=== PATIENT | female | born 1975 | race Caucasian/White ===

== ENCOUNTER 2024-08-21 06:16 | Emergency (ER) | payer BC ==
[2024-08-21] MEDS: fentaNYL 100 MCG/2 ML SDV IVPUSH ONE (06:40)
[2024-08-21] MEDS: Ondansetron 4 MG/2 ML SDV IVPUSH ONE (06:40)
[2024-08-21 06:42] LABS: BASOPHILS ABSOLUTE AUTO 0.04 K/uL (0.00-0.10); BASOPHILS PERCENT AUTO 0.4 % (0.1-1.3); EOSINOPHILS ABSOLUTE AUTO 0.12 K/uL (0.00-0.40); EOSINOPHILS PERCENT AUTO 1.3 % (0.0-5.4); HEMATOCRIT 35.8 % (34.3-46.0); HEMOGLOBIN 11.8 g/dL (11.2-15.5); IMMATURE GRAN PERCENT AUTO 0.1 % (0.0-0.7); LYMPHOCYTES ABSOLUTE AUTO 5.09 K/uL (0.8-3.3); MEAN CORPUSCULAR HEMOGLOBIN 30.8 pg (31.6-35.5); MEAN CORPUSCULAR VOLUME 93.5 fL (81.4-99.0); MONOCYTES PERCENT AUTO 7.8 % (3.3-12.6); NEUTROPHILS ABSOLUTE AUTO 2.97 K/uL (1.0-7.6); NEUTROPHILS PERCENT AUTO 33.4 % (40.0-78.1); PLATELET COUNT,PLT 334 K/uL (130-375); RED BLOOD CELL COUNT 3.83 M/uL (3.77-5.24); WHITE BLOOD CELL COUNT,WBC 8.9 K/uL (3.2-11.0)
[2024-08-21 06:43] LABS: IMMATURE GRAN ABSOLUTE AUTO 0.01 K/uL (0.00-0.23)
[2024-08-21] MEDS: Ketorolac 30 MG/ML SDV IVPUSH ONE (06:46)
[2024-08-21 06:54] LABS: A/G RATIO 1.1 (1.2-2.2); ALANINE AMINOTRANSFERASE,ALT 29 U/L (12-78); ALBUMIN 3.5 g/dL (3.4-5.0); ALKALINE PHOSPHATASE 74 U/L (46-116); ANION GAP 13.7 mmol/L (5.0-14.0); ASPARTATE AMNIOTRANSFERASE,AST 20 U/L (15-37); BILIRUBIN TOTAL 0.2 mg/dL (0.2-1.0); BLOOD UREA NITROGEN,BUN 10 mg/dL (7-18); CALCIUM 9.1 mg/dL (8.5-10.1); CARBON DIOXIDE,CO2 25 mmol/L (21-32); CHLORIDE,CL 102 mmol/L (100-108); CREATININE 1.1 mg/dL (0.6-1.0); EST CRCL DRUG DOSING (CG) 45.41 mL/min; ESTIMATED GFR 62 mL/min (>60); GLUCOSE RANDOM 140 mg/dL (74-106); POTASSIUM,K 3.9 mmol/L (3.6-5.2); PROTEIN TOTAL,TP 6.6 g/dL (6.4-8.2); SODIUM,NA 141 mmol/L (140-148)
[2024-08-21] MEDS: HYDROmorphone 0.5 MG/0.5 ML Syringe IVPUSH ONE (06:54)
[2024-08-21] MEDS: Sodium Chloride 0.9% 10 ML Syringe FLUSH PRN ×2 (07:00→07:03)
[2024-08-21] MEDS: Sodium Chloride 0.9% 1,000 ML IV STA (07:00)
[2024-08-21] MEDS: Iopamidol 612 MG/ML 100 ML Bottle IV PRN (07:12)
[2024-08-21] MEDS: Sodium Chloride 0.9% 80 ML IV SCH (07:12)
[2024-08-21] MEDS ORDERED: Naloxone 0.4 MG/ML SDV IVPUSH PRN (07:20)
[2024-08-21] MEDS: HYDROmorphone 1 MG/ML Syringe IVPUSH PRN (07:26)
[2024-08-21] MEDS: Prochlorperazine 10 MG/2 ML SDV IVPUSH ONE (07:26)
[2024-08-21] MEDS: Tamsulosin 0.4 MG Cap.ER PO ONE (08:06)
[2024-08-21] MEDS: Acetaminophen 1,000 MG in Premix Bag 1 BAG IV ONE (08:07)
[2024-08-21 08:17] LABS: APPEARANCE,URINE CLEAR (CLEAR); BILIRUBIN,URINE NEGATIVE (NEGATIVE); COLOR,URINE YELLOW (YELLOW); GLUCOSE,URINE NEGATIVE (NEGATIVE); KETONES,URINE TRACE mg/dL (NEGATIVE); LEUKOCYTE ESTERASE,URINE NEGATIVE (NEGATIVE); NITRITE,URINE NEGATIVE (NEGATIVE); OCCULT BLOOD,URINE TRACE-INTACT (NEGATIVE); PH,URINE 8.5 (5.0-8.0); PROTEIN,URINE NEGATIVE (NEGATIVE); UROBILINOGEN,URINE 0.2 EU/dL (0.2-1.0)
[2024-08-21 08:21] LABS: AMORPHOUS SEDIMENT,URINE NOT SEEN; BACTERIA,URINE FEW; EPITHELIAL CELLS,URINE FEW; MUCUS,URINE NOT SEEN; WBC,URINE 0-5 (0-5)
== END 2024-08-21 10:20 | disposition home or self-care (01) ==
LOC: JP.ED 06:16
DX: N13.2 Hydronephrosis with renal and ureteral calculous obstruction (principal); Z79.899 Other long term (current) drug therapy; Z90.710 Acquired absence of both cervix and uterus
CPT/HCPCS: 36415; 74177; 80053; 81001; 83605; 83690; 84703; 85025; 96361; 96365; 96375; 96376; 99284; A9270; J0131; J0780; J1171; J1885; J2405; J3010; J7030; Q9967